=== PATIENT | female | born 1970 | race Asian ===

== ENCOUNTER 2016-09-07 10:09 | Emergency (ER) | payer SELFPAY ==
--- NOTE | 2016-09-07 14:10 | DIAGNOSTIC IMAGING REPORT ---
PROCEDURE: CT HEAD WITH CONTRAST INDICATION: COCHLEAR IMPLANT, HEADACHE, DRAINAGE FROM SITE TECHNIQUE: Axial CT images of the head were acquired after uncomplicated administration of 90 ml Isovue 370 IV contrast. Coronal and sagittal reformations were created. COMPARISON: 09/12/2013 FINDINGS: A 2.5 cm soft tissue defect measuring about 6 mm in depth in the left posterior auricular scalp. There is an iatrogenic defect in the outer table of the skull underlying the soft tissue defect. No suspicious periostitis. No soft tissue fluid collection. Mild amount of soft tissue thickening at the base of the wound. Surgical changes of left mastoidectomy. Small amount of residual soft tissue thickening within the cavity. Brain and ventricles are normal. Normal enhancement in the brain without filling defects in the sinuses. IMPRESSION: 1. Left posterior auricular soft tissue defect without underlying fluid collection or periostitis. 2. Interval resolution of soft tissue density within the left mastoidectomy cavity. 3. Findings called to the emergency room.
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
--- NOTE | 2016-09-07 14:24 | ED CLINICAL REPORT ---
Clinical Report - Physicians/Mid Levels [facility] [address] [place] [address] 09/07/2016 10:09 Patient: SANDRA GUAJARDO Time Seen: 10:55. Arrived- By private vehicle. Historian- patient. 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 This started today and is still present. It is described as itchy. Not painful. It has been located on the scalp. Cause has been identified (Pt states she had the rn observation placed posterior to her L ear a few months ago, and that she has not had problems until the past few days. She has noticed a mild amount of serous weeping and itching at the site, and today, while doing her hair, pt's fingernail swiped across the rn observation, dislodging it.). (Pt states that now she has a headache.). Similar symptoms previously: None. Recent medical care: Not recently seen/assessed. REVIEW OF SYSTEMS No fever, chills, sore throat, cough or difficulty breathing. No hoarseness, lump in throat, enlarged lymph nodes, eye irritation or chest pain. No abdominal pain, nausea, diarrhea, difficulty with urination or joint pain. No vomiting. The patient has had a headache. All systems otherwise negative, except as recorded above. PAST HISTORY Problems: Hearing Loss. Dizziness. Vertigo. Contact Dermatitis. Tetanus Status. Immunizations. LNMP - Last Normal Menstrual Period. Additional Surgeries: EAR SURGERY. Hearing amplifier placement. Medications: None. Allergies: None. SOCIAL HISTORY Never smoker. Occasional alcohol use. No drug use. ADDITIONAL NOTES The nursing notes have been reviewed. PHYSICAL EXAM Vital Signs: 09/07/2016 10:26 BP: 110/65. HR: 78. RR: 16. O2 saturation: 100%. Temp: 98.7 F. Pain level now: 0/10. Have been reviewed. Appearance: Alert. Oriented X3. No acute distress. Eyes: Pupils equal, round and reactive to light. Conjunctivae and eyelids normal. ENT: Ears normal. Nose normal. Neck: Neck supple. CVS: Normal heart rate and rhythm. Heart sounds normal. Respiratory: No respiratory distress. Skin: Skin warm. Normal skin color. Normal skin turgor. No erythema. (PT has a small patch of scarring posterior to her L ear, in the midst of which is a 2 mm, deeper hole. A small amount of serous drainage is coming from the hole. The area is moderately tender.). Extremities: Normal external inspection. Neuro: Oriented X 3. (Grossly intact.). LABS, X-RAYS, AND EKG CT Head: Normal study. No acute changes. No bony abnormalities, no hemorrhage, no intracranial mass, no midline shift and no hydrocephalus. No atrophy. Head CT performed without contrast. The study was independently viewed by me, interpreted by the radiologist and contemporaneously by me and discussed with the radiologist. Prior studies were not available for comparison. Pulse Oximetry: 09/07/2016 10:26 O2 saturation: 100%. (FIO2 - room air). Interpretation: normal. PROGRESS AND PROCEDURES Course of Care: PT was given IM Toradol for her CONTRERAS. It was not clear whether there were underlying wires or other parts of the rn observation, which had been dislodged or otherwise disrupted by the rn observation coming out. Pt did bring the rn observation, which was about 5 mm in diameter by 1 cm in length, to the ED for me to view. I did get a CT of the area, which showed no further underlying parts. I did advise pt that she will need to see her ENT specialist at who placed the device, to discuss having it placed again. Patient counseled in person regarding the patient's stable condition, test results, diagnosis and need for follow-up. Concerns were addressed. Old medical records reviewed. Disposition: Discharged. Condition: stable. CLINICAL IMPRESSION Acute tension headache. INSTRUCTIONS (The CT scan looks good. You will need to see the ENT specialist at who put the hearing device in, so it can be replaced. There is no evidence of infection at this time.). Warnings: Further evaluation is necessary. GENERAL WARNINGS: Return or contact your physician immediately if your condition worsens or changes unexpectedly, if not improving as expected, or if other problems arise. Follow-up: Follow up with an ear, nose and throat physician (an collision mechanic). Understanding of the discharge instructions verbalized by patient. (Electronically signed by Tiki Lucero MD 09/12/2016 5:02)
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
--- NOTE | 2016-09-07 14:24 | ED ORDER SUMMARY ---
..... Patient: SANDRA GUAJARDO OrderSheet [facility] VisitID: [id number] [address] [place] [address] 45y, F Registration Date/Time: 09/07/2016 ORDER SHEET Weight: 68.0 kg (estimated) Allergies: None GENERAL ORDERS: CT IAC/PF/Orbit wo Cont Urgent (11:39 09/07/2016 Alberto WELCH) (Ack 11:49 Ravi) (Cancelled: Other12:45 Alberto WELCH) CT Head w Cont (No) (N/A) Urgent (12:45 09/07/2016 Alberto WELCH) (Ack 12:54 Ravi) (21:06 SRoberts R.N.) MEDICATION ORDERS: Toradol IM 60 mg (NOW) (11:38 09/07/2016 Alberto WELCH) (Ack 11:40 SRoberts R.N.) (11:52 SRoberts R.N.) IV FLUIDS: IV Saline Lock (12:46 09/07/2016 Alberto WELCH) (Ack 13:15 SRoberts R.N.) (13:17 MWinterer R.N.) ORDER SHEET NOTES: [Electronically signed by Stefany Owens R.N. (21:08 09/07/2016)] [Electronically signed by Tiki Lucero MD (05:02 09/12/2016)] [Electronically locked/signed by Stefany Owens R.N. (21:08 09/07/2016)]
--- NOTE | 2016-09-07 14:24 | ED ORDER SUMMARY ---
..... Patient: SANDRA GUAJARDO OrderSheet [facility] VisitID: [id number] [address] [place] [address] 45y, F Registration Date/Time: 09/07/2016 ORDER SHEET Weight: 68.0 kg (estimated) Allergies: None GENERAL ORDERS: CT IAC/PF/Orbit wo Cont Urgent (11:39 09/07/2016 Alberto WELCH) (Ack 11:49 Ravi) (Cancelled: Other12:45 Alberto WELCH) CT Head w Cont (No) (N/A) Urgent (12:45 09/07/2016 Alberto WELCH) (Ack 12:54 Ravi) (21:06 SRoberts R.N.) MEDICATION ORDERS: Toradol IM 60 mg (NOW) (11:38 09/07/2016 Alberto WELCH) (Ack 11:40 SRoberts R.N.) (11:52 SRoberts R.N.) IV FLUIDS: IV Saline Lock (12:46 09/07/2016 Alberto WELCH) (Ack 13:15 SRoberts R.N.) (13:17 MWinterer R.N.) ORDER SHEET NOTES: [Electronically signed by Stefany Owens R.N. (21:08 09/07/2016)] [Electronically signed by Tiki Lucero MD (05:02 09/12/2016)] [Electronically locked/signed by Stefany Owens R.N. (21:08 09/07/2016)]
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
--- NOTE | 2016-09-12 05:02 | ED MED RECONCILIATION SUMMARY ---
Patient: SANDRA GUAJARDO Medication Reconciliation Report [facility] VisitID: [id number] [address] [place] [address] 45y, F Registration Date/Time: 09/07/2016 Weight: 68.0 kg Height/Length: 63 in. BMI: 26.6 ALLERGIES: None The patient's Home Medications are listed below: NONE. The source(s) of the original Home Medication information: patient The following Medications were given to the patient in the Emergency Department: Toradol [IM] IM 60 mg, administered: 09/07/2016 11:52:00 AM The following Medications were prescribed to the patient: None.
--- NOTE | 2016-09-12 05:02 | ED MAR SUMMARY ---
..... Medication Administration Record [facility] [address] [place] [address] Patient: SANDRA GUAJARDO Visit ID: [id number] 45y, F Weight: 68.0 kg Height/Length: 63 in BMI: 26.6 ALLERGIES: None Given 11:52 09/07/2016 Stefany Owens R.N. Medication Administered: TORADOL [IM] (KETOROLAC TROMETHAMINE), Dose: 60 mg IM. Medication Ordered: Toradol IM 60 mg (NOW).
--- NOTE | 2016-09-12 05:02 | ED MED RECONCILIATION SUMMARY ---
Patient: SANDRA GUAJARDO Medication Reconciliation Report [facility] VisitID: [id number] [address] [place] [address] 45y, F Registration Date/Time: 09/07/2016 Weight: 68.0 kg Height/Length: 63 in. BMI: 26.6 ALLERGIES: None The patient's Home Medications are listed below: NONE. The source(s) of the original Home Medication information: patient The following Medications were given to the patient in the Emergency Department: Toradol [IM] IM 60 mg, administered: 09/07/2016 11:52:00 AM The following Medications were prescribed to the patient: None.
--- NOTE | 2016-09-12 05:02 | ED MAR SUMMARY ---
..... Medication Administration Record [facility] [address] [place] [address] Patient: SANDRA GUAJARDO Visit ID: [id number] 45y, F Weight: 68.0 kg Height/Length: 63 in BMI: 26.6 ALLERGIES: None Given 11:52 09/07/2016 Stefany Owens R.N. Medication Administered: TORADOL [IM] (KETOROLAC TROMETHAMINE), Dose: 60 mg IM. Medication Ordered: Toradol IM 60 mg (NOW).
--- NOTE | 2016-09-12 05:02 | ED DISCHARGE INSTRUCTIONS ---
Patient: SANDRA GUAJARDO General Instructions [facility] VisitID: [id number] [place] [address] 45y, F Registration Date/Time: 09/07/2016 Acute tension headache. INSTRUCTIONS (The CT scan looks good. You will need to see the ENT specialist at who put the hearing device in, so it can be replaced. There is no evidence of infection at this time.). Warnings: Further evaluation is necessary. GENERAL WARNINGS: Return or contact your physician immediately if your condition worsens or changes unexpectedly, if not improving as expected, or if other problems arise. 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 Understanding of the discharge instructions verbalized by patient. ADDITIONAL INFORMATION Headache [Unspecified] The cause of your headache today is not clear, but it does not appear to be the sign of any serious illness. Under stress, some people tense the muscles of their shoulder, neck and scalp without knowing it. If this condition lasts long enough, a TENSION HEADACHE can occur. A MIGRAINE HEADACHE is caused by changes in blood flow to the brain. A migraine attack may be triggered by emotional stress, hormone changes during the menstrual cycle, oral contraceptives, alcohol use, certain foods containing tyramine, eye strain, weather changes, missing meals, lack of sleep or oversleeping. Other causes of headache include a viral illness with high fever, head injury with concussion, sinus, ear or throat infection, dental pain and TMJ (jaw joint) pain. More serious but less common causes of headache include stroke, brain hemorrhage, brain tumor, meningitis and encephalitis. Home Care: If you were given pain medicine for this headache, do not drive yourself home. Arrange for a ride, instead. When you get home, try to sleep. You should feel much better when you wake up. Apply heat to the back of your neck to relieve neck muscle spasm. Migraine headaches may respond best to an ice pack on the forehead or at the base of the skull. If you are having nausea or vomiting, follow a light diet until your headache is relieved. If you have a migraine type headache, use sunglasses when in the daylight or around bright indoor lighting until symptoms improve. Bright glaring light can worsen this kind of headache. Follow Up with your doctor if the headache is not better within the next 24 hours. If you have frequent headaches you should discuss a treatment plan with your primary care doctor. By being aware of the earliest signs of headache, and starting treatment right away, you may be able to stop the pain yourself. Get Prompt Medical Attention if any of the following occur: Worsening of your head pain or no improvement within 24 hours Repeated vomiting (unable to keep liquids down) Fever of 100.4F (38C) or higher, or as directed by your healthcare provider Stiff neck Extreme drowsiness, confusion or fainting Dizziness, vertigo (dizziness with spinning sensation) Weakness of an arm or leg or one side of the face Difficulty with speech or vision You have been given the following additional information: Headache, Unspecified (Electronically signed by Tiki Lucero MD 09/12/2016 5:02)
--- NOTE | 2016-09-12 05:02 | ED DISCHARGE INSTRUCTIONS ---
Patient: SANDRA GUAJARDO General Instructions [facility] VisitID: [id number] [place] [address] 45y, F Registration Date/Time: 09/07/2016 Acute tension headache. INSTRUCTIONS (The CT scan looks good. You will need to see the ENT specialist at who put the hearing device in, so it can be replaced. There is no evidence of infection at this time.). Warnings: Further evaluation is necessary. GENERAL WARNINGS: Return or contact your physician immediately if your condition worsens or changes unexpectedly, if not improving as expected, or if other problems arise. 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 Understanding of the discharge instructions verbalized by patient. ADDITIONAL INFORMATION Headache [Unspecified] The cause of your headache today is not clear, but it does not appear to be the sign of any serious illness. Under stress, some people tense the muscles of their shoulder, neck and scalp without knowing it. If this condition lasts long enough, a TENSION HEADACHE can occur. A MIGRAINE HEADACHE is caused by changes in blood flow to the brain. A migraine attack may be triggered by emotional stress, hormone changes during the menstrual cycle, oral contraceptives, alcohol use, certain foods containing tyramine, eye strain, weather changes, missing meals, lack of sleep or oversleeping. Other causes of headache include a viral illness with high fever, head injury with concussion, sinus, ear or throat infection, dental pain and TMJ (jaw joint) pain. More serious but less common causes of headache include stroke, brain hemorrhage, brain tumor, meningitis and encephalitis. Home Care: If you were given pain medicine for this headache, do not drive yourself home. Arrange for a ride, instead. When you get home, try to sleep. You should feel much better when you wake up. Apply heat to the back of your neck to relieve neck muscle spasm. Migraine headaches may respond best to an ice pack on the forehead or at the base of the skull. If you are having nausea or vomiting, follow a light diet until your headache is relieved. If you have a migraine type headache, use sunglasses when in the daylight or around bright indoor lighting until symptoms improve. Bright glaring light can worsen this kind of headache. Follow Up with your doctor if the headache is not better within the next 24 hours. If you have frequent headaches you should discuss a treatment plan with your primary care doctor. By being aware of the earliest signs of headache, and starting treatment right away, you may be able to stop the pain yourself. Get Prompt Medical Attention if any of the following occur: Worsening of your head pain or no improvement within 24 hours Repeated vomiting (unable to keep liquids down) Fever of 100.4F (38C) or higher, or as directed by your healthcare provider Stiff neck Extreme drowsiness, confusion or fainting Dizziness, vertigo (dizziness with spinning sensation) Weakness of an arm or leg or one side of the face Difficulty with speech or vision You have been given the following additional information: Headache, Unspecified (Electronically signed by Tiki Lucero MD 09/12/2016 5:02)
== END 2016-09-07 14:40 | disposition home or self-care (01) ==
LOC: ED SRH 10:09
DX: G44.209 Tension-type headache, unspecified, not intractable (principal)